=== PATIENT | female | born 1965 | race Caucasian/White ===

== ENCOUNTER 2016-12-10 10:40 | Emergency (ER) | payer MEDICAID ==
[~2016-12-10] VITALS: Wt 63.6 kg
--- NOTE | 2016-12-10 11:16 | RADRPT ---
PROCEDURE: XR Chest AP portable CLINICAL INDICATION: Chest pain TECHNIQUE: An AP portable radiograph of the chest was submitted. COMPARISON: None. FINDINGS: Support Hardware: None Cardiovascular: The cardiovascular silhouette appears unremarkable. Lung Sanchez: The lung sanchez appear clear with no nodule, alveolar infiltrate, or interstitial promi nence evident. Pleural Spaces: No pneumothorax or pleural effusion is identified. Osseous Structures: The osseous structures appear intact. Soft Tissues: The soft tissues appear unremarkable. IMPRESSION: Unremarkable portable chest. Physician Rosa Date Time Electronically viewed and signed by Clarissa Motley Physician on 12/10/2016 11:16 RH/
[2016-12-10 12:00] LABS: CALCIUM 8.8 mg/dl (8.4-10.2); CREATININE 0.82 mg/dl (0.44-1.00)
[2016-12-10 12:12] LABS: TROPONIN-I 0.023 ng/ml (0.00-0.12)
[2016-12-10 12:14] LABS: BASOPHILS % 0.3 % (0.0-2.0); EOSINOPHILS # 0.1 10^3/ul (0.0-0.5); EOSINOPHILS % 1.5 % (0.0-7.0); HEMOGLOBIN 12.7 g/dl (12.0-16.0); LYMPHOCYTES # 2.1 10^3/ul (0.8-2.9); LYMPHOCYTES % 30.4 % (15.0-51.0); MEAN CORPUSCULAR HEMOGLOBIN 30.3 pg (29.0-33.0); MEAN CORPUSCULAR HGB CONC 32.6 g/dl (32.0-37.0); MEAN CORPUSCULAR VOLUME 93.1 fl (82.0-101.0); MEAN PLATELET VOLUME 11.2 fl (7.4-10.4); MONOCYTE # 0.4 10^3/ul (0.3-0.9); MONOCYTES % 6.3 % (0.0-11.0); NEUTROPHIL # 4.2 10^3/ul (1.6-7.5); NEUTROPHILS % 61.1 % (39.0-77.0); PLATELET COUNT 219 10^3/UL (140-415); RED BLOOD COUNT 4.19 10^6/ul (4.20-5.40); RED CELL DISTRIBUTION WIDTH 12.7 % (11.5-14.5); WHITE BLOOD COUNT 6.8 10^3/ul (4.8-10.8)
--- NOTE | 2016-12-10 12:34 | ERD ---
ER Documentation Chief Complaint Chief Complaint svt 173 in field w spntaneous conversion. bs 122 HPI This is a 51-year-old female being transferred from an urgent care with spontaneous conversion of supraventricular tachycardia. EMS reports that the patient was tachycardic and had palpitations was borderline hypotensive in the 90s and had an EKG that showed SVT that spontaneously converted. The patient reports that she woke up this morning and felt dizzy and had palpitations. This has never happened before. She denies any drugs or alcohol. Patient denies any chest pain or pleuritic pain, no fevers or chills no cough, no new [id number] cough medications. She denies a history of SVT. ROS All systems reviewed and are negative except as per history of present illness. Allergies Allergies: Coded Allergies: No Known Allergy (Unverified , 12/10/16) PMhx/Soc Hx Cardiac Disorders: Yes (htn) Hx Psychiatric Problems: Yes (anxiety) Hx Alcohol Use: No Hx Substance Use: No Hx Tobacco Use: No Smoking Status: Unknown if ever smoked FmHx Family History: No coronary disease, No diabetes Physical Exam Vitals Vital Signs Date Time Temp Pulse Resp B/P Pulse Ox O2 Delivery O2 Flow Rate FiO2 12/10/16 10:48 97.0 76 20 115/96 100 Physical Exam General: Well developed, well nourished, no acute distress Head: Normocephalic, atraumatic. Eyes: Pupils equally reactive, EOM intact ENT: Moist mucous membranes Neck: Supple, no lymphadenopathy Respiratory: Lungs clear bilaterally, no distress Cardiovascular: RRR, no murmurs, rubs, or gallops Abdominal: Soft, non-tender, non-distended, no peritoneal signs : Deferred MSK: No edema, no unilateral swelling, 5/5 strength Neurologic: Alert and oriented, moving all extremities, normal speech, no focal weakness, no cerebellar signs Skin: No rash Psych: Normal mood Result Diagram: 12/10/16 1120 12/10/16 1120 Results 24 hrs Laboratory Tests Test 12/10/16 11:20 White Blood Count 6.810^3/ul Red Blood Count 4.1910^6/ul Hemoglobin 12.7g/dl Hematocrit 39.0% Mean Corpuscular Volume 93.1fl Mean Corpuscular Hemoglobin 30.3pg Mean Corpuscular Hemoglobin Concent 32.6g/dl Red Cell Distribution Width 12.7% Platelet Count 03236^3/UL Mean Platelet Volume 11.2fl Neutrophils % 61.1% Lymphocytes % 30.4% Monocytes % 6.3% Eosinophils % 1.5% Basophils % 0.3% Nucleated Red Blood Cells % 0.0/100WBC Neutrophils # 4.210^3/ul Lymphocytes # 2.110^3/ul Monocytes # 0.410^3/ul Eosinophils # 0.110^3/ul Basophils # 0.010^3/ul Nucleated Red Blood Cells # 0.010^3/ul Sodium Level 141mmol/L Potassium Level 5.0mmol/L Chloride Level 104mmol/L Carbon Dioxide Level 29mmol/L Anion Gap 13 Blood Urea Nitrogen 22mg/dl Creatinine 0.82mg/dl Glucose Level 82mg/dl Calcium Level 8.8mg/dl Troponin I 0.023ng/ml Free Thyroxine Index Pending Thyroxine (T4) Pending Triiodothyronine (T3) Uptake Pending Procedures/MDM EKG, MONITORS, & DIAGNOSTIC IMAGING: Rhythm strip: EMS rhythm strip and EKG Rate/Rhythm: Narrow complex tachycardia without P waves Impression: Supraventricular tachycardia ER EKG EKG: I reviewed and interpreted a 12-lead EKG. Rhythm: Normal sinus rhythm Ectopy: None Intervals: No abnormalities, normal QRS and QTC ST segments: No elevations or depressions T waves: No contiguous inversions LAB INTERPRETATION: Negative troponin and electrolytes, thyroid pending MEDICAL DECISION MAKING: The patient presents with spontaneous conversion of SVT in the field. The patient had a EMS EKG that was very consistent with supraventricular tachycardia. The patient has never had SVT before, has no murmurs and no history of cardiac disease. I believe basic blood work and troponin as well as thyroid testing would be reasonable initiation of screening. However, at this time I do not believe the patient requires inpatient hospitalization. Close outpatient primary care follow-up in cardiology follow-up would be reasonable. Echocardiogram may be necessary but no clinical signs of valvular disease. ER COURSE: The patient had spontaneous conversion of her SVT. She remains asymptomatic and well-appearing and hemodynamically stable. Her electrolytes are normal. The patient's thyroid is pending but family and patient wished to be discharged. They can follow-up not emergently with a thyroid panel. No evidence of thyroid storm clinically. I kept the patient and/or family informed of laboratory and diagnostic imaging results throughout the emergency room course. DISPOSITION PLAN: We discussed follow up with the patient's primary care doctor within 24 to 48 hours as needed. We also discussed return to the emergency room for worsening symptoms or worsening condition. Outpatient referral: Cardiology Discharge Medications: None required Departure Diagnosis: Primary Impression: Supraventricular tachycardia determined by electrocardiogram Condition: Stable ROSARIO PARRY MD Dec 10, 2016 12:34
[2016-12-10 12:46] VITALS: BP 118/88; PULSE 76; RESP 18; TEMP 97.7
[2016-12-10 12:52] LABS: T3 UPTAKE 35.7 % (23.5-40.5)
== END 2016-12-10 12:46 | disposition home or self-care (01) ==
LOC: E/R 10:40
DX: I47.1 Supraventricular tachycardia (principal); I10 Essential (primary) hypertension
CPT/HCPCS: 36415; 71010; 80048; 84436; 84479; 84484; 85025; Z7502